=== PATIENT | female | born 1950 | race Caucasian/White ===

== ENCOUNTER 2018-11-18 10:26 | Day surgery (SDC) | payer OTHER ==
[2018-11-17 15:54] VITALS: BMI 23.9
--- NOTE | 2018-11-18 09:32 | HP ---
[facility] - Chief Complaint Chief Complaint: right knee pain - Past Medical History Allergies/Adverse Reactions: Allergies Allergy/AdvReac Type Severity Reaction Status Date / Time No Known Allergies Allergy Verified 11/17/18 15:45 - Current Medications Current Medications: Home Medications Medication Instructions Recorded Unobtainable 11/17/18 [facility] Physical Exam - Physical Examination General Appearance: Well Nourished, Well Developed, Alert & Oriented x3 ENT: Clear Lung: Normal air movement Heart: Regular rate & rhythm Extremities: Other (right knee- + swelling, + ttp, decr rom, + mcmurrays, nvi, MRI + mt) Neurological: Intact, Alert, Oriented [facility] Impression/Plan - Impression/Plan Impression: right knee internal derangement Operative Procedure: right knee arthroscopy Date to be Performed: 11/18/18
[2018-11-18] MEDS ORDERED: LIDOCAINE 1%-EPI 1:100,000 30 ML MDV IJ ONE (10:44)
[2018-11-18] MEDS ORDERED: BUPIVACAINE HCL/PF 0.5% (5MG/ML) 10 ML VIAL ONE (10:44)
[2018-11-18] MEDS ORDERED: oxyCODONE HCL 5 MG TABLET PO PRN (11:26)
[2018-11-18] MEDS ORDERED: ONDANSETRON 4 MG/2 ML VIAL IVPUSH PRN (11:26)
[2018-11-18] MEDS ORDERED: LACTATED RINGERS SOLUTION 1,000 ML IV SCH (11:30)
[2018-11-18] MEDS ORDERED: MIDAZOLAM HCL 2 MG/2 ML SINGLE DOSE VIAL ONE (12:13)
[2018-11-18] MEDS ORDERED: PROPOFOL 20 ML ONE (12:18)
[2018-11-18] MEDS ORDERED: DEXAMETHASONE SOD PHOSPHATE 4 MG/1 ML VIAL ONE (12:24)
[2018-11-18] MEDS ORDERED: LIDOCAINE 1%/EPI 1:100000 (50 ML MULTI DOSE VIAL) INF ONE (12:31)
[2018-11-18] MEDS ORDERED: BUPIVACAINE HCL/PF 0.5% (5 MG/ML) 30 ML VIAL IJ ONE (12:31)
[2018-11-18 14:32] VITALS: TEMP 98.3
--- NOTE | 2018-11-18 14:50 | OP ---
Operative Note - Note: Operative Date: 11/18/18 ([facility] Pre-Operative Diagnosis: right knee internal derangement Operation: right knee arthroscopy with debridement chondroplasty trochlea Post-Operative Diagnosis: Same as Pre-op Surgeon: Victor Hugo Novak Anesthesia: General, Local Specimens Removed: shavings Estimated Blood Loss (mls): 5 Operative Report Dictated: Yes
[2018-11-18 15:52] VITALS: BP 121/65; PULSE 73
--- NOTE | 2018-11-18 20:02 | OP ---
DATE OF OPERATION: 11/18/2018 PREOPERATIVE DIAGNOSIS: Internal derangement, right knee. POSTOPERATIVE DIAGNOSIS: Internal derangement, right knee. PROCEDURE: Arthroscopy, right knee, with chondroplasty of trochlea. SURGICAL ATTENDING: Victor Hugo Novak MD ANESTHESIA: General with LMA. CLOSURE: 4-0 nylon. COMPLICATIONS: None. CONDITION: To recovery room in stable condition. DESCRIPTION OF OPERATIVE PROCEDURE: Patient taken to the operating room on November 18, 2018. General anesthesia with LMA was administered by the anesthesiologist. The right lower extremity was prepped and draped in the usual sterile fashion. The medial and lateral infrapatellar portal sites were infiltrated with 1% Xylocaine with epinephrine. Both portals were then made with a 15 blade followed by blunt trocar. The scope was placed in the lateral infrapatellar portal and up into suprapatellar pouch. The knee was inflated with a cocktail of 10 mL of 1% Xylocaine, 10 mL of 0.5% Marcaine, and 20 mL of arthroscopic saline. After allowing the anesthetic to work in the knee, the procedure was performed. The medial and lateral gutters were visualized to be clean. The undersurface of the patella was found to be intact. The trochlea was found to have central grade 3 changes. Any loose articular cartilage was debrided using the shaver. The medial compartment was then entered. The medial meniscus was visualized and probed, found to be intact. The medial femoral condyle was found to have some slight grade 1-2 changes anteriorly, which was left in situ. The rest of the medial femoral condyle and tibial plateau was found to be intact. At 90 degrees, the ACL was visualized and probed, found to be intact. In the figure-4 position, the lateral compartment was entered. The lateral meniscus was visualized and probed, found to be intact. The lateral femoral condyle was run and found to be intact as was the lateral tibial plateau. The knee was irrigated with copious amounts of irrigation. The portals were closed using 4-0 nylon. Prior to closure, the knee was drained of all of the fluid, and then inflated with 20 mL of 0.5% Marcaine for postoperative analgesia. Sterile pressure dressing was placed over the knee. Patient awakened from anesthesia and transferred to recovery room in stable condition. No complications. Estimated blood loss negligible. Jessica [id number]
--- NOTE | 2018-11-23 17:28 | PATH ---
Surgical Pathology Report Patient Name: RASHIDA CARRILLO [facility]. Rec. #: [id number] /Age/Gender: 1950 (Age: 68) / F Account: [id number] Location: [facility] SURGICAL Taken: 11/18/2018 Received: 11/18/2018 Reported: 11/23/2018 Physicians: Victor Hugo Novak M.D. Specimen(s) Received SHAVINGS RIGHT KNEE Clinical History Torn meniscus right knee Final Diagnosis KNEE SHAVINGS, RIGHT, ARTHROSCOPY: FRAGMENTS OF CARTILAGE, DENSE FIBROCONNECTIVE TISSUE, ADIPOSE TISSUE, AND REACTIVE SYNOVIUM. Electronically Signed Tracy Dolan M.D. Gross Description Received in formalin, labeled "shavings right knee," is a 4.0 x 3.5 x 0.3 cm. aggregate of loyola-yellow soft tissue fragments. A title insurance sales representative portion is submitted in one cassette. 11/19/2018 saudi11/19/2018
== END 2018-11-18 15:55 | disposition home or self-care (01) ==
LOC: JASU-SURG 10:26
PROVIDERS: ATTEND Orthopaedic Surgery
PROC: 0SBC4ZZ Excision of Right Knee Joint, Percutaneous Endoscopic Approach (ICD-10-PCS; principal; 2018-11-18 12:30)
DX: M23.8X1 Other internal derangements of right knee (principal); M23.41 Loose body in knee, right knee; E11.9 Type 2 diabetes mellitus without complications; I10 Essential (primary) hypertension
CPT/HCPCS: 82962; 88304-TC; 94760

== ENCOUNTER 2019-06-03 07:59 | Day surgery (SDC) | payer OTHER ==
[2019-06-02 09:51] VITALS: BMI 25.0
[2019-06-03 09:48] VITALS: TEMP 97.8
[2019-06-03 10:15] VITALS: BP 138/82; PULSE 82
--- NOTE | 2019-06-04 16:39 | PATH ---
Surgical Pathology Report Patient Name: RASHIDA CARRILLO [facility] [place]. Rec. #: [id number] /Age/Gender: 1950 (Age: 68) / F Account: [id number] Location: [facility]END[facility]COPY Taken: 06/03/2019 Received: 06/03/2019 Reported: 06/04/2019 Physicians: Chavez Guthrie D.O. Specimen(s) Received A: TRANSVERSE COLON POLYP B: DESCENDING COLON POLYP C: SIGMOID COLON POLYPS D: RECTAL POLYP Clinical History History of colon polyps Postoperative diagnosis: Colon polyps, diverticulosis Final Diagnosis A. Transverse colon, polyp, biopsy: Hyperplastic polyp. B. Descending colon, polyp, biopsy: Hyperplastic polyp. C. Sigmoid colon, polyps, biopsy: Hyperplastic polyp(S). D. Rectal polyp, biopsy: Hyperplastic polyp(S). Electronically Signed Tracy Dolan M.D. Gross Description A. Received in formalin, labeled "transverse colon polyp" is a loyola, irregular portion of soft tissue measuring 0.3 cm. in greatest dimension. The specimen is submitted in toto in one cassette. B. Received in formalin, labeled "descending colon polyp" is a loyola, irregular portion of soft tissue measuring 0.3 cm. in greatest dimension. The specimen is submitted in toto in one cassette. C. Received in formalin, labeled "sigmoid colon polyps x2" are 2 loyola, irregular portions of soft tissue measuring 0.2 and 0.3 cm. in greatest dimension. The specimens are submitted in toto in one cassette. D. Received in formalin, labeled "rectal polyp biopsy x2" are 2 loyola, irregular portions of soft tissue averaging 0.3 cm. in greatest dimension. The specimens are submitted in toto in one cassette. DL/06/03/2019 saudi/06/03/2019
== END 2019-06-03 10:14 | disposition home or self-care (01) ==
LOC: JASU-ENDO 07:59
PROVIDERS: ATTEND Internal Medicine Gastroenterology
PROC: 0DBL8ZX Excision of Transverse Colon, Via Natural or Artificial Opening Endoscopic, Diagnostic (ICD-10-PCS; 2019-06-03)
PROC: 0DBN8ZX Excision of Sigmoid Colon, Via Natural or Artificial Opening Endoscopic, Diagnostic (ICD-10-PCS; 2019-06-03)
PROC: 0DBP8ZX Excision of Rectum, Via Natural or Artificial Opening Endoscopic, Diagnostic (ICD-10-PCS; 2019-06-03)
PROC: 0DBM8ZX Excision of Descending Colon, Via Natural or Artificial Opening Endoscopic, Diagnostic (ICD-10-PCS; principal; 2019-06-03 09:00)
DX: Z86.010 Personal history of colon polyps (principal); D12.3 Benign neoplasm of transverse colon; D12.4 Benign neoplasm of descending colon; D12.5 Benign neoplasm of sigmoid colon; D12.8 Benign neoplasm of rectum; K63.5 Polyp of colon; K57.30 Diverticulosis of large intestine without perforation or abscess without bleeding; K64.8 Other hemorrhoids; I10 Essential (primary) hypertension; D57.3 Sickle-cell trait; E11.9 Type 2 diabetes mellitus without complications; E78.00 Pure hypercholesterolemia, unspecified
CPT/HCPCS: 88305-TC